=== PATIENT | female | born 1940 | race Caucasian/White ===

== ENCOUNTER 2017-06-12 10:14 | Inpatient (IN) | payer MEDICARE, OTHER ==
[2017-06-12 11:21] LABS: #Basophils 0.1 thou/uL (0.0-0.2); #Eosinphils 0.2 thou/uL (0.0-0.7); #Lymphocytes 1.4 thou/uL (1.20-3.40); #Monocytes 0.7 thou/uL (0.11-0.59); #Neutrophils 4.7 thou/uL (1.40-6.50); %Basophils 1.2 % (0.0-1.0); %Eosinophils 3.1 % (0.0-10.0); %Lymphocytes 19.9 % (21.0-51.0); %Monocytes 9.6 % (0.0-10.0); Hematocrit 23.4 % (36.0-47.0); Mean Platelet Volume 8.5 fL (7.4-10.4); Red Blood Cell (RBC) Count 2.38 mill/uL (4.20-5.40); White Blood Cell (WBC) Count 7.1 thou/uL (4.8-10.8)
[2017-06-12 11:22] LABS: IRF 0.462 Ratio (0.163-0.362)
--- NOTE | 2017-06-12 11:26 | RAD ---
PORTABLE CHEST 1 VIEW: Date: 06/12/17 Time: 1026 hours HISTORY: Dyspnea. FINDINGS: The heart is enlarged. Changes of median sternotomy are present. Lungs are well expanded without con fluent areas of consolidation, pneumothorax, [place] pulmonary edema, or pleural effusions. IMPRESSION: Cardiomegaly. POS: ROS
[2017-06-12 11:28] LABS: PTT 47.4 SEC (22.9-36.1); Prothrombin Time 39.6 SEC (12.0-14.7)
[2017-06-12 11:33] LABS: ALT (SGPT) 15 U/L (8-55); AST (SGOT) 20 U/L (5-34); Alkaline Phosphatase 54 U/L (40-150); Anion Gap 12 mmol/L (10-20); BUN (Urea Nitrogen) 26 mg/dL (9.8-20.1); Bilirubin, Total 0.5 mg/dL (0.2-1.2); Calc. Creatinine Clearance 0 mL/min (70-130); Carbon Dioxide 24 mmol/L (23-31); Chloride 109 mmol/L (98-107); Estimated GFR-MDRD 31; Globulin 3.3 g/dL (2.4-3.5); Iron 20 ug/dL (50-170); Protein, Total 6.8 g/dL (6.0-8.3)
--- NOTE | 2017-06-12 13:25 | HP ---
PRIMARY CARE PHYSICIAN: [facility] call admission. REASON FOR ADMISSION: Symptomatic anemia. HISTORY OF PRESENT ILLNESS: A 77-year-old female who has history of bioprosthetic aortic valve replacement as well as history of chronic anticoagulation therapy with Xarelto, who came to emergency room for generalized weakness, fatigue, dyspnea on exertion, dizziness and palpitations. These symptoms are gradually getting worse for about a month. Patient reports that she gets intermittent spontaneous epistaxis. Last epistaxis was about 10 days ago and whenever she gets epistaxis per family, it is voluminous and requires time to control. She denies by herself any melenotic stool, hematochezia. She denies any weight loss. She denies any epigastric pain. She denies taking NSAID. Patient denies any or GI bleeding. She denies any chest pain. She denies any syncope. She denies any lower extremity edema, orthopnea, or PND. She denies any urinary tract infection symptoms. Patient reports that she had colonoscopy about more than 5 years ago, but she never had any upper endoscopy. Patient denies any family history of colon cancer. The patient is being admitted for symptomatic anemia and workup. REVIEW OF SYSTEMS: The following complete review of systems was negative, unless otherwise mentioned in the HPI or below: Constitutional: Weight loss or gain, ability to conduct usual activities. Skin: Rash, itching. Eyes: Double vision, pain. ENT/Mouth: Nose bleeding, neck stiffness, pain, tenderness. Cardiovascular: Palpitations, dyspnea on exertion, orthopnea. Respiratory: Shortness of breath, wheezing, cough, hemoptysis, fever or night sweats. Gastrointestinal: Poor appetite, abdominal pain, heartburn, nausea, vomiting, constipation, or diarrhea. Genitourinary: Urgency, frequency, dysuria, nocturia. Musculoskeletal: Pain, swelling. Neurologic/Psychiatric: Anxiety, depression. Allergy/Immunologic: Skin rash, bleeding tendency. Please see my HPI for pertinent positive and negative. All other review of systems reviewed and negative except as mentioned in the HPI. PAST MEDICAL HISTORY: Recurrent epistaxis, anemia, diabetes type 2, bradycardia , hypothyroidism, dyslipidemia, and aortic valve disorder. PAST SURGICAL HISTORY: History of aortic valve replacement with bioprosthetic valve, carotid endarterectomy. PAST PSYCHIATRIC HISTORY: Anxiety, depression, and obsessive compulsive disorder. SOCIAL HISTORY: Patient lives at home. No history of smoking, alcohol or other illicit drug abuse. She drinks alcohol only very occasionally. FAMILY HISTORY: No strong family history of premature coronary artery disease, stroke or cancer. ALLERGIES: NSAID, QUINOLONES, and SULFA DRUGS. CURRENT HOME MEDICATIONS: Xarelto 10 mg p.o. daily, Lipitor 20 mg p.o. at bedtime, glipizide 5 mg p.o. daily, valsartan 80 mg p.o. daily, Synthroid 100 mcg p.o. daily, metoprolol tartrate 12.5 mg p.o. daily, aspirin 81 mg p.o. daily , Celexa 10 mg p.o. daily, and cetirizine 10 mg p.o. daily. EMERGENCY ROOM COURSE: Reviewed. PHYSICAL EXAMINATION: VITAL SIGNS: Currently, blood pressure 154/38, pulse 50, respiratory rate 16, temperature 97.9, saturation 99% on room air, and weight 63.5 kilograms. GENERAL: Patient is currently alert, awake, in no obvious acute distress. HEAD: Normocephalic, atraumatic. EYES: Pupils round, reactive to light. Extraocular muscle intact. Pallor plus. No nystagmus. ENT: Pale mucous membranes. No oral lesions. No pharyngeal erythema, no exudate. NECK: Supple, no JVD, no thyromegaly, no carotid bruit, no signs of meningeal irritation. LUNGS: Clear to auscultation without any rhonchi or rales. CARDIAC: S1 and S2 regular, bradycardia, bioprosthetic click heard. ABDOMEN: Soft, bowel sounds present. No distention, no organomegaly, no mass, no peritoneal sign, no guarding, no rigidity, no rebound, and no suprapubic tenderness. BACK: Examination unremarkable, no CVA tenderness. EXTREMITIES: Upper extremity passive movements of all joints are normal. Lower extremity, no edema. Good peripheral pulsation. SKIN: Pale skin. No rash. HEMATOLOGICAL SYSTEM: No lymphadenopathy. PSYCHIATRIC: Normal affect. NEUROLOGIC: Patient is alert and oriented x3. Cranial nerves II-XII intact. Motor and sensation within normal limits. No focal neurological deficit noted. IMAGING AND SIGNIFICANT LABORATORY DATA: 1. EKG based on my review, sinus bradycardia with rate 44. No Q-wave in lead 3 , V1, V2 and V3. 2. Chest x-ray based on my review, cardiomegaly. 3. CBC: WBC 7.1, hemoglobin 7.3, platelets 201, reticulocyte count 2.0, INR 3.8. 4. BMP: Sodium 140, potassium 5.1, chloride 109, carbon dioxide 24, BUN 26, creatinine 1.62, glucose 111, and calcium 9.0. 5. Iron 20, TIBC 374, ferritin 19.76. 6. LFT: AST 20, ALT 15, alkaline phosphatase 54, albumin 3.5. ASSESSMENT AND PLAN/IMPRESSION: 1. Symptomatic anemia. The patient has iron deficiency anemia. Most likely, this patient has intermittent blood loss from epistaxis. The patient is on chronic anticoagulation with Xarelto. Underlying gastrointestinal loss is also possible. At this point, patient and family member requesting further evaluation with ENT evaluation as well as GI evaluation to find out the source of bleeding. At this point, patient has symptomatic anemia. That is why we will transfuse 1 unit of blood. We will also consider iron infusion while in hospital and iron supplementation. We will hold on Xarelto therapy we find the source of bleeding. We will repeat CBC tomorrow. We will also check stool for guaiac. 2. Recurrent epistaxis. Patient will need ENT evaluation, most likely related with her chronic anticoagulation with Xarelto, but we need to identify the etiology of epistaxis like arteriovenous malformation. If it is the case, then she may need specific treatment. The patient's family member requesting ENT consultation while in hospital. 3. Diabetes type 2. We will continue insulin as per sliding scale per protocol. Diabetic diet will be given. We will continue glipizide 5 mg p.o. daily. 4. Sinus bradycardia. We will hold on metoprolol tartrate therapy at this point because of significant bradycardia. 5. Hypertension. We will continue valsartan 80 mg p.o. daily. 6. Dyslipidemia. We will continue Lipitor 20 mg p.o. at bedtime. 7. Anxiety and depression. We will continue Celexa 10 mg p.o. daily. 8. Chronic kidney disease stage 3. We will monitor renal function. We will repeat basic metabolic panel tomorrow. 9. Chronic anticoagulation with Xarelto. We will hold on Xarelto therapy today until we identify the source of bleeding. 10. Gastrointestinal prophylaxis; Protonix 40 mg p.o. daily. 11.Hypothyroidism: continue synthroid 100 mcg po daily CODE STATUS: The patient is FULL CODE. Patient's son is surrogate decision maker. Disposition plan based on clinical course. We are expecting patient's stay in hospital more than 2 midnights. Plan of care discussed with the patient and family member at bedside in the emergency room. CANDIE
[2017-06-12] MEDS ORDERED: Ondansetron HCl/PF 4 MG/2 ML Vial IVP PRN (13:48)
[2017-06-12] MEDS ORDERED: Loratadine 10 MG TAB PO PRN (13:48)
[2017-06-12] MEDS ORDERED: Dextrose 50% Abboject 50 ML SYRINGE SLOW IVP PRN (13:48)
[2017-06-12] MEDS ORDERED: HumaLOG 300 UNITS/3 ML VIAL SC PRN ×2 (13:48)
[2017-06-12] MEDS ORDERED: Sodium Chloride 0.65% Nasal 44 ML BOT EA NARE PRN (13:48)
[2017-06-12] MEDS ORDERED: HYDROcodone/Acetaminophen 5/325 mg Tablet PO PRN (13:48)
[2017-06-12] MEDS ORDERED: Eucerin (Mineral Oil/Petrolatum,White) 30 gm Jar TOP PRN (13:48)
[2017-06-12] MEDS ORDERED: Mag-Al 1200 mg/1200 mg/30 ML UDCUP PO PRN (13:48)
[2017-06-12] MEDS ORDERED: Calcium Carbonate 500 MG ChewTAB PO PRN (13:48)
[2017-06-12] MEDS ORDERED: Milk Of Magnesia 30 ML UDCUP PO PRN (13:48)
[2017-06-12] MEDS ORDERED: Loperamide HCl 2 MG CAP PO PRN (13:48)
[2017-06-12] MEDS ORDERED: Acetaminophen 325 MG TAB PO PRN (13:48)
[2017-06-12] MEDS ORDERED: Zolpidem Tartrate 5 MG TAB PO PRN (13:48)
[2017-06-12] MEDS ORDERED: Ondansetron ODT 4 MG TAB PO PRN (13:48)
[2017-06-12] MEDS ORDERED: Dextrose 5% in Water 1,000 ML IV PRN (13:48)
[2017-06-12] MEDS ORDERED: Senokot 8.6 MG TAB PO PRN (13:48)
[2017-06-12] MEDS ORDERED: Artificial Tear Sol 15 ML BOT EA EYE PRN (13:48)
[2017-06-12] MEDS ORDERED: Diabetic Tussin 200 MG/10 ML UDCUP PO PRN (13:48)
[2017-06-12 13:56] VITALS: BMI 27.3
[2017-06-12 16:03] LABS: Bilirubin Negative (Negative); Blood, Urine Negative (Negative); Glucose, Urine (Dipstick) Negative (Negative); Ketone, Urine Negative (Negative); Nitrite Negative (Negative); Protein, Urine (Dipstick) 30 mg/dL (Neg-Trace)
[2017-06-12 16:07] LABS: Bacteria/HPF Rare-Few HPF (None Seen); Hyaline Casts/LPF 0-3 HYALINE CAST LPF (0-3 Hyaline); RBC/HPF 0-3 HPF (0-3); Squamous Epithelial 0-3 HPF (0-3); WBC/HPF 21-50 HPF (0-3)
[2017-06-12] MEDS: hydrALAZINE 20 MG/ML VIAL SLOW IVP PRN (16:59)
--- NOTE | 2017-06-12 17:45 | CON ---
DATE OF CONSULTATION: 06/12/2017 HISTORY OF PRESENT ILLNESS: The patient is a 77-year-old female who presented with progre ssive shortness of breath and dyspnea on exertion. She has had several nose bleeds over the last se veral months. Her worst being approximately 10 days ago where she bled a large amount according to her and her son. She has had no nausea or vomiting, no abdominal pain, no weight loss. She has not had any melena or hematochezia. She previously had upper and lower endoscopy approximately 15 year s ago. The patient is on Xarelto for a bovine aortic valve. She took her last Xarelto this morning . PAST MEDICAL HISTORY: Significant for diabetes mellitus, hyperlipidemia, hypertension, bradycardia, aortic valve replacement with bovine valve. PAST SURGICAL HISTORY: Includes aortic valve replacement and endarterectomy. MEDICATIONS: Include Xarelto 10 mg p.o. q. day, Lipitor 20 mg p.o. q.p.m., glipizide 5 mg p.o. q. d ay, valsartan 80 mg p.o. q. day, Synthroid 100 mcg p.o. q. day, metoprolol 12.5 mg p.o. q. day, aspi rin 81 mg p.o. q. day, Celexa 10 mg p.o. q. day and cetirizine 10 mg p.o. q. day. FAMILY HISTORY: Negative for GI or liver disease. REVIEW OF SYSTEMS: Constitutional: No fever or chills. No weight loss. Eyes: No blurred vision or double vision. ENT: Negative for sore throat. Negative for ear aces. Positive for nosebleeds. Cardiovascular: Negative for chest pain. Negative for palpitations. Pulmonary: Positive for sh ortness of breath. Positive for dyspnea on exertion. Negative for wheezes. Negative for cough. G astrointestinal: See above. Genitourinary: No hematuria or dysuria. Musculoskeletal: No joint p ain or muscle weakness. Skin: No rashes. Neurologic: No numbness or seizure activity. PHYSICAL EXAMINATION: GENERAL: Shows a pale female in no acute distress. VITAL SIGNS: Temperature 97.8, pulse 50, respiratory rate 14 and blood pressure 192/44. HEENT: Unremarkable. NECK: Supple. CHEST: Clear. CARDIOVASCULAR: Regular rate and rhythm. ABDOMEN: Soft and nontender, without organomegaly or masses. Bowel sounds are present and normoact berkley. RECTAL: Deferred. EXTREMITIES: Normal. NEUROLOGIC: Nonfocal. LABORATORY DATA: Shows a hemoglobin of 7.3 and hematocrit of 23.4. PT is 39.6 with an INR of 3.8. Chemistries show chloride 109, BUN 26, creatinine 1.62, glucose 111. Iron is 28, TIBC is 374. Junito ritin is 19.76. Urinalysis shows a moderate leukocyte esterase and 21-50 wbc's. ASSESSMENT: 1. Iron deficiency anemia - probably secondary to epistaxis. 2. Coagulopathy secondary to Xarelto. 3. Aortic valve replacement, on Xarelto. 4. Epistaxis. 5. Urinary tract infection. 6. Diabetes mellitus. 7. Hypertension. 8. Bradycardia. RECOMMENDATIONS: 1. Hold Xarelto. 2. EGD and colonoscopy on 06/14.
[2017-06-12] MEDS: Atorvastatin Calcium 20 MG TAB PO SCH (20:48)
[2017-06-13 05:19] LABS: #Basophils 0.1 thou/uL (0.0-0.2); #Eosinphils 0.3 thou/uL (0.0-0.7); #Lymphocytes 1.7 thou/uL (1.20-3.40); #Monocytes 0.8 thou/uL (0.11-0.59); #Neutrophils 4.8 thou/uL (1.40-6.50); %Basophils 0.8 % (0.0-1.0); %Eosinophils 4.1 % (0.0-10.0); %Lymphocytes 21.8 % (21.0-51.0); %Monocytes 10.1 % (0.0-10.0); Hematocrit 24.2 % (36.0-47.0); Mean Platelet Volume 8.6 fL (7.4-10.4); Red Blood Cell (RBC) Count 2.52 mill/uL (4.20-5.40); White Blood Cell (WBC) Count 7.6 thou/uL (4.8-10.8)
[2017-06-13 05:20] LABS: Prothrombin Time 23.7 SEC (12.0-14.7)
[2017-06-13] MEDS: Levothyroxine Sodium 100 MCG TAB PO SCH (05:39)
[2017-06-13 05:41] LABS: ALT (SGPT) 14 U/L (8-55); AST (SGOT) 19 U/L (5-34); Alkaline Phosphatase 43 U/L (40-150); Anion Gap 10 mmol/L (10-20); BUN (Urea Nitrogen) 28 mg/dL (9.8-20.1); Bilirubin, Total 0.6 mg/dL (0.2-1.2); Calc. Creatinine Clearance 35 mL/min (70-130); Carbon Dioxide 24 mmol/L (23-31); Chloride 111 mmol/L (98-107); Estimated GFR-MDRD 38; Globulin 2.5 g/dL (2.4-3.5); Protein, Total 5.6 g/dL (6.0-8.3)
[2017-06-13] MEDS: glipiZIDE 5 MG TAB PO SCH (09:27)
[2017-06-13] MEDS: Valsartan 80 MG TAB PO SCH (09:27)
[2017-06-13] MEDS: Citalopram 20 MG TAB PO SCH (09:27)
[2017-06-13] MEDS ORDERED: Iron Sucrose Complex 200 MG in Sodium Chloride 0.9% 250 ML 250 ML IVPB SCH (10:00)
--- NOTE | 2017-06-13 10:05 | PDOC.PN ---
- Subjective Encounter Start Date: 06/13/17 Encounter Start Time: 08:40 -: old records requested/rev Patient seen and examined. pt is still feels very weak, fatigued and dyspnea on exertion. No overnight events - Objective Resuscitation Status: Resuscitation Status FULL:Full Resuscitation MAR Reviewed: Yes Vital Signs & Weight: Vital Signs (12 hours) Temp Pulse Resp BP BP Pulse Ox 06/13/17 08:26 98.4 F 71 20 98 06/13/17 08:00 97.8 F 67 20 163/58 H 95 06/13/17 04:00 98.4 F 71 20 175/63 H 95 06/13/17 00:12 98.6 F 52 L 20 165/65 H 96 Weight Weight 144 lb 6 oz I&O: 06/12/17 06/13/17 06/14/17 06:59 06:59 06:59 Intake Total 980 Balance 980 Result Diagrams: 06/13/17 04:41 06/13/17 04:41 Additional Labs: Accuchecks 06/13/17 06/12/17 06/12/17 05:06 20:33 16:18 POC Glucose 104 121 H 173 H Phys Exam - Physical Examination Constitutional: NAD HEENT: PERRLA, moist MMs, sclera anicteric Neck: no JVD, supple Respiratory: no wheezing, no rales, no rhonchi Cardiovascular: RRR, no significant murmur, no rub Gastrointestinal: soft, non-tender, no distention, positive bowel sounds Musculoskeletal: no edema, pulses present Neurological: non-focal, normal sensation, moves all 4 limbs Psychiatric: normal affect, A&O x 3 Skin: no rash, normal turgor Dx/Plan (1) Symptomatic anemia Code(s): D64.9 - ANEMIA, UNSPECIFIED Status: Acute (2) Bradycardia Code(s): R00.1 - BRADYCARDIA, UNSPECIFIED Status: Acute Comment: due to BB (3) Recurrent epistaxis Code(s): R04.0 - EPISTAXIS Status: Acute (4) Anxiety and depression Code(s): F41.8 - OTHER SPECIFIED ANXIETY DISORDERS Status: Chronic (5) Chronic anticoagulation Code(s): Z79.01 - HALFWAY (CURRENT) USE OF ANTICOAGULANTS Status: Chronic (6) Diabetes type 2, controlled Code(s): E11.9 - TYPE 2 DIABETES MELLITUS WITHOUT COMPLICATIONS Status: Chronic (7) Dyslipidemia Code(s): E78.5 - HYPERLIPIDEMIA, UNSPECIFIED Status: Chronic (8) H/O mitral valve replacement Code(s): Z95.2 - PRESENCE OF PROSTHETIC HEART VALVE Status: Chronic (9) Hypertension Code(s): I10 - ESSENTIAL (PRIMARY) HYPERTENSION Status: Chronic (10) Hypothyroidism Code(s): E03.9 - HYPOTHYROIDISM, UNSPECIFIED Status: Chronic - Plan cont current plan of care, plan discussed w/ family * today will transfuse 1 unit PRBC * will also give one dose of IV iron * tomorrow plan for EGD/colonoscopy * discussed with son * medication reviewed as below * symptomatic treatment * repeat labs tomorrow. Review of Systems - Review of Systems ENT: negative: Ear Pain, Ear Discharge, Nose Pain, Nose Discharge, Nose Congestion, Mouth Pain, Mouth Swelling, Throat Pain, Throat Swelling, Other Respiratory: negative: Cough, Dry, Shortness of Breath, Hemoptysis, SOB with Excertion, Pleuritic Pain, Sputum, Wheezing Cardiovascular: negative: Chest Pain, Palpitations, Orthopnea, Paroxysmal Noc. Dyspnea, Edema, Light Headedness, Other Gastrointestinal: negative: Nausea, Vomiting, Abdominal Pain, Diarrhea, Constipation, Melena, Hematochezia, Other Genitourinary: negative: Dysuria, Frequency, Incontinence, Hematuria, Retention , Other Musculoskeletal: negative: Neck Pain, Shoulder Pain, Arm Pain, Back Pain, Hand Pain, Leg Pain, Foot Pain, Other Skin: negative: Rash, Lesions, Reuben, Bruising, Other - Medications/Allergies Allergies/Adverse Reactions: Allergies Allergy/AdvReac Type Severity Reaction Status Date / Time NSAIDS (Non-Steroidal Allergy Mild Hives Verified 06/12/17 13:54 Anti-Inflamma Quinolones Allergy Mild Hives Verified 06/12/17 13:54 Sulfa (Sulfonamide Allergy Mild Hives Verified 06/12/17 13:54 Antibiotics) Medications: Current Medications Acetaminophen (Tylenol) 650 mg PO Q4H PRN PRN Reason: Headache/Fever or Pain Hydrocodone Bitart/Acetaminophen ([place] 5/325) 1 tab PO Q4H PRN PRN Reason: Moderate Pain (4-6) Al Hydroxide/Mg Hydroxide (Maalox) 30 ml PO Q6H PRN PRN Reason: Heartburn or Indigestion Artificial Tears (Tears Renewed 15ml Bottle) 0 drop EA EYE PRN PRN PRN Reason: Dry Eyes Atorvastatin Calcium (Lipitor) 20 mg PO HS [facility] Last Admin: 06/12/17 20:48 Dose: 20 mg Calcium Carbonate (Tums) 1,000 mg PO Q4H PRN PRN Reason: Heartburn or Indigestion Citalopram Hydrobromide (Celexa) 20 mg PO DAILY [facility] Last Admin: 06/13/17 09:27 Dose: 20 mg Dextrose/Water (Dextrose 50%) 25 gm SLOW IVP PRN PRN PRN Reason: Hypoglycemia Glipizide (Glucotrol) 5 mg PO DAILY-[facility] Last Admin: 06/13/17 09:27 Dose: 5 mg Glucagon (Glucagon) 1 mg IM PRN PRN PRN Reason: Hypoglycemia Guaifenesin (Robitussin Sf) 200 mg PO Q4H PRN PRN Reason: Cough Hydralazine HCl (Apresoline) 10 mg SLOW IVP Q4H PRN PRN Reason: Systolic BP > 180 Last Admin: 06/12/17 16:59 Dose: 10 mg Dextrose/Water (D5w) 1,000 mls @ 0 mls/hr IV .Q0M PRN; As Directed PRN Reason: Hypoglycemia Iron Sucrose 200 mg/ Sodium (Chloride) 260 mls @ 125 mls/hr IVPB 1000 [facility] Stop: 06/13/17 12:05 Insulin Human Lispro (Humalog) 0 units SC .MODERATE SLIDING SC PRN PRN Reason: Moderate Correctional Scale Insulin Human Lispro (Humalog) 0 units SC .BEDTIME SLIDING SC PRN PRN Reason: Bedtime Correctional Scale Levothyroxine Sodium (Synthroid) 100 mcg PO 0600 [facility] Last Admin: 06/13/17 05:39 Dose: 100 mcg Loperamide HCl (Imodium) 2 mg PO PRN PRN PRN Reason: Diarrhea/Loose Stools Loratadine (Claritin) 10 mg PO DAILYPRN PRN PRN Reason: Sinus Symptoms Magnesium Hydroxide (Milk Of Magnesium) 30 ml PO DAILYPRN PRN PRN Reason: Constipation Mineral Oil/White Petrolatum (Eucerin Cream) 0 gm TOP BIDPRN PRN PRN Reason: Dry Skin Ondansetron HCl (Zofran Odt) 4 mg PO Q6H PRN PRN Reason: Nausea/Vomiting Ondansetron HCl (Zofran) 4 mg IVP Q6H PRN PRN Reason: Nausea/Vomiting Pantoprazole Sodium (Protonix) 40 mg PO DAILY [facility] Last Admin: 06/13/17 09:27 Dose: 40 mg Polyethylene Glycol/Electrolytes (Golytely) 4,000 ml PO 1800 [facility] Stop: 06/13/17 23:59 Senna (Senokot) 2 tab PO HSPRN PRN PRN Reason: Constipation Sodium Chloride ([place] 0.65%) 0 ml EA NARE QIDPRN PRN PRN Reason: Nasal Congestion Valsartan (Diovan) 80 mg PO DAILY [facility] Last Admin: 06/13/17 09:27 Dose: 80 mg Zolpidem Tartrate (Ambien) 5 mg PO HSPRN PRN PRN Reason: Insomnia
--- NOTE | 2017-06-13 12:04 | PRG ---
DATE OF SERVICE: 06/13/2017 SUBJECTIVE: The patient is feeling well. No GI complaints. She is short of breath whenever she ge ts up to walk. OBJECTIVE: VITAL SIGNS: Temperature 98.4, pulse 71, respiratory rate 20 and blood pressure 163/58. HEENT: Unremarkable. NECK: Supple. CHEST: Clear. CARDIOVASCULAR: Regular rate and rhythm. ABDOMEN: Benign. LABORATORY DATA: Shows a hemoglobin of 7.8 and hematocrit of 24.2. PT is 23.7 with an INR of 2.0. Chemistries significant for BUN 28, creatinine 1.36 and albumin 3.1. ASSESSMENT: 1. Anemia - most likely secondary to epistaxis. 2. Coagulopathy. 3. Aortic valve replacement. 4. Epistaxis. 5. Bradycardia. 6. Hypertension. RECOMMENDATIONS: 1. Continue to hold Xarelto. 2. EGD and colonoscopy in a.m.
[2017-06-13] MEDS ORDERED: GoLYTELY 4,000 ml Bottle PO SCH (18:00)
[2017-06-13] MEDS: hydrALAZINE 20 MG/ML VIAL SLOW IVP PRN (20:28)
[2017-06-13] MEDS: Atorvastatin Calcium 20 MG TAB PO SCH (21:23)
[2017-06-14 04:39] LABS: #Lymphocytes 1.3 thou/uL (1.20-3.40); #Monocytes 0.8 thou/uL (0.11-0.59); #Neutrophils 9.4 thou/uL (1.40-6.50); %Basophils 0.4 % (0.0-1.0); %Eosinophils 0.3 % (0.0-10.0); %Lymphocytes 11.2 % (21.0-51.0); %Monocytes 7.1 % (0.0-10.0); Hematocrit 28.5 % (36.0-47.0); Red Blood Cell (RBC) Count 3.02 mill/uL (4.20-5.40); White Blood Cell (WBC) Count 11.6 thou/uL (4.8-10.8)
[2017-06-14 04:52] LABS: Anion Gap 13 mmol/L (10-20); BUN (Urea Nitrogen) 18 mg/dL (9.8-20.1); Calc. Creatinine Clearance 39 mL/min (70-130); Calcium 8.6 mg/dL (7.8-10.44); Carbon Dioxide 23 mmol/L (23-31); Chloride 107 mmol/L (98-107); Estimated GFR-MDRD 43
[2017-06-14] MEDS: Levothyroxine Sodium 100 MCG TAB PO SCH (05:27)
[2017-06-14 05:42] VITALS: BP 170/61; TEMP 97.9
[2017-06-14] MEDS: Valsartan 80 MG TAB PO SCH (08:08)
[2017-06-14] MEDS: glipiZIDE 5 MG TAB PO SCH (08:08)
[2017-06-14] MEDS: Citalopram 20 MG TAB PO SCH (08:08)
[2017-06-14] MEDS ORDERED: Lidocaine 1% PF 5 ML VIAL ONE (08:16)
[2017-06-14] MEDS ORDERED: Propofol 200 MG/20 ML VIAL ONE (08:16)
[2017-06-14] MEDS ORDERED: Promethazine HCl 25 MG/ML VIAL IM PRN (08:47)
[2017-06-14] MEDS ORDERED: Ondansetron HCl/PF 4 MG/2 ML Vial IVP PRN (08:47)
[2017-06-14] MEDS ORDERED: Promethazine HCl 25 MG/ML VIAL SLOW IVP PRN (08:47)
--- NOTE | 2017-06-14 11:46 | PDOC.PN ---
- Subjective Encounter Start Date: 06/14/17 Encounter Start Time: 10:15 -: old records requested/rev Patient seen and examined. No new complaints. No overnight events - Objective Resuscitation Status: Resuscitation Status FULL:Full Resuscitation MAR Reviewed: Yes Vital Signs & Weight: Vital Signs (12 hours) Temp Pulse Resp BP Pulse Ox 06/14/17 07:20 97.9 F 91 18 06/14/17 04:00 97.9 F 91 18 170/61 H 99 Weight Weight 144 lb 6 oz I&O: 06/13/17 06/14/17 06/15/17 06:59 06:59 06:59 Intake Total 728 512 6136 Balance 797 998 0549 Result Diagrams: 06/14/17 04:12 06/14/17 04:12 Additional Labs: Accuchecks 06/14/17 06/13/17 06/13/17 05:26 21:40 15:08 POC Glucose 174 H 122 H 129 H 06/13/17 11:20 POC Glucose 136 H Phys Exam - Physical Examination Constitutional: NAD HEENT: PERRLA, moist MMs, sclera anicteric Neck: no JVD, supple Respiratory: no wheezing, no rales, no rhonchi Cardiovascular: RRR, no significant murmur, no rub Gastrointestinal: soft, non-tender, no distention, positive bowel sounds Musculoskeletal: no edema, pulses present Neurological: non-focal, normal sensation, moves all 4 limbs Psychiatric: normal affect, A&O x 3 Skin: no rash, normal turgor Dx/Plan (1) Symptomatic anemia Code(s): D64.9 - ANEMIA, UNSPECIFIED Status: Acute (2) Bradycardia Code(s): R00.1 - BRADYCARDIA, UNSPECIFIED Status: Acute Comment: due to BB (3) Recurrent epistaxis Code(s): R04.0 - EPISTAXIS Status: Acute (4) Anxiety and depression Code(s): F41.8 - OTHER SPECIFIED ANXIETY DISORDERS Status: Chronic (5) Chronic anticoagulation Code(s): Z79.01 - LONGTERM (CURRENT) USE OF ANTICOAGULANTS Status: Chronic (6) Diabetes type 2, controlled Code(s): E11.9 - TYPE 2 DIABETES MELLITUS WITHOUT COMPLICATIONS Status: Chronic (7) Dyslipidemia Code(s): E78.5 - HYPERLIPIDEMIA, UNSPECIFIED Status: Chronic (8) H/O mitral valve replacement Code(s): Z95.2 - PRESENCE OF PROSTHETIC HEART VALVE Status: Chronic (9) Hypertension Code(s): I10 - ESSENTIAL (PRIMARY) HYPERTENSION Status: Chronic (10) Hypothyroidism Code(s): E03.9 - HYPOTHYROIDISM, UNSPECIFIED Status: Chronic - Plan cont current plan of care, plan discussed w/ family * stable for discharge * EGD and colonoscopy no acute process * medication reviewed as below * symptomatic treatment * see discharge summery. Review of Systems - Review of Systems ENT: negative: Ear Pain, Ear Discharge, Nose Pain, Nose Discharge, Nose Congestion, Mouth Pain, Mouth Swelling, Throat Pain, Throat Swelling, Other Respiratory: negative: Cough, Dry, Shortness of Breath, Hemoptysis, SOB with Excertion, Pleuritic Pain, Sputum, Wheezing Cardiovascular: negative: Chest Pain, Palpitations, Orthopnea, Paroxysmal Noc. Dyspnea, Edema, Light Headedness, Other Gastrointestinal: negative: Nausea, Vomiting, Abdominal Pain, Diarrhea, Constipation, Melena, Hematochezia, Other Genitourinary: negative: Dysuria, Frequency, Incontinence, Hematuria, Retention , Other Musculoskeletal: negative: Neck Pain, Shoulder Pain, Arm Pain, Back Pain, Hand Pain, Leg Pain, Foot Pain, Other - Medications/Allergies Allergies/Adverse Reactions: Allergies Allergy/AdvReac Type Severity Reaction Status Date / Time NSAIDS (Non-Steroidal Allergy Mild Hives Verified 06/12/17 13:54 Anti-Inflamma Quinolones Allergy Mild Hives Verified 06/12/17 13:54 Sulfa (Sulfonamide Allergy Mild Hives Verified 06/12/17 13:54 Antibiotics)
--- NOTE | 2017-06-14 11:49 | OP ---
PREOPERATIVE DIAGNOSIS: Anemia. PROCEDURE IN DETAIL: After informed consent was obtained, the patient was placed in the left latera l decubitus position. Anesthesia was administered per the Anesthesia Department. Forward-viewing e ndoscope was inserted into the esophagus under direct visualization with ease and passed to the se[place] nd portion of the duodenum with ease. Second portion of the duodenum and duodenal bulb were normal. The pylorus was normal. The antrum showed several small ulcers. Biopsies were taken from the [facility] er edge in several places. None of these ulcers had visible vessels or active bleeding. Retroflexi on in the stomach was normal except for a small hiatal hernia. The esophagus was normal throughout. ASSESSMENT: 1. Several small antral ulcers -- status post biopsy. 2. Small hiatal hernia. 3. Otherwise normal esophagogastroduodenoscopy. RECOMMENDATIONS: 1. PPI. 2. Proceed with colonoscopy. PROCEDURE: After informed consent was obtained, the patient was placed in the left lateral decubitu s position. Anesthesia was administered per the Anesthesia Department. Forward-viewing endoscope w as inserted in the rectum after perianal inspection and rectal exam were normal. It was passed to t he cecum with ease. The cecum, ileocecal valve, and appendiceal orifice were normal. The terminal ileum was normal. The prep was excellent. The ascending, transverse, descending, sigmoid and rectu m were all normal except for left-sided diverticulosis coli. ASSESSMENT: 1. Left-sided diverticulosis coli. 2. Otherwise normal colonoscopy. RECOMMENDATIONS: Stable for discharge from gastrointestinal standpoint.
--- NOTE | 2017-06-14 14:45 | DIS ---
DATE OF ADMISSION: 06/12/2017 DATE OF DISCHARGE: 06/14/2017 PRIMARY CARE PHYSICIAN: [facility] call admission. DISCHARGE DISPOSITION: Home. PRIMARY DISCHARGE DIAGNOSES: 1. Recurrent epistaxis. 2. Symptomatic iron deficiency anemia, status post 2 units transfusion. SECONDARY DISCHARGE DIAGNOSES: Hypothyroidism, hypertension, history of mitral valve replacement, d yslipidemia, chronic anticoagulation, diabetes type 2, anxiety and depression. PRIMARY PROCEDURE/OPERATION: Esophagogastroduodenoscopy and colonoscopy was done by Dr. Rowe and fo und with colonic diverticulosis, several small antral ulcers which was biopsied and hiatal hernia. RADIOLOGICAL INVESTIGATION: Chest x-ray was normal. SIGNIFICANT LABS: WBC 11.6, hemoglobin 9.1, platelets 162. INR 1.5. Sodium 138, creatinine 1.20, calcium 8.6. Urinalysis suggestive of UTI, but the patient was not having any symptoms and stool fo r guaiac was negative. DISCHARGE MEDICATIONS: Aspirin 81 mg p.o. daily, Lipitor 40 mg p.o. at bedtime, cetirizine 10 mg p. o. daily, Celexa 10 mg p.o. daily, ferrous sulfate 325 mg p.o. b.i.d., Synthroid 100 mcg p.o. daily, Lopressor 12.5 mg p.o. daily, Protonix 40 mg p.o. daily, Xarelto 10 mg p.o. daily, valsartan 80 mg p.o. daily, and glipizide 5 mg p.o. daily. CONTRAINDICATIONS: None. CODE STATUS: FULL CODE. INPATIENT CONSULTANTS: Dr. Rowe was consulted while in hospital. TEST RESULTS PENDING ON DISCHARGE: None. ALLERGIES: NSAID. DISCHARGE PLAN: Post hospital, the patient will follow up with primary care physician and Dr. Rowe and ENT specialist. HOSPITAL COURSE: A 77-year-old female who was admitted for symptomatic anemia. She was having dysp fatou on exertion, fatigue, palpitation and weakness. She was having gradually worsening anemia. On admission, her hemoglobin was 7.8, we transfused 1 unit of blood and next day, her hemoglobin was 7. 8, despite that she was having continuous symptom and that is why we transfused another unit of bloo d transfusion as well as iron infusion was given. This patient was having recurrent epistaxis and t hat is why we tried to consult ENT, but ENT recommended to see as an outpatient basis. We consulted the employee placement specialist for anemia workup and the patient had upper and lower endoscopy which showed diverticulosis and small antral ulcer and that is why we prescribed Protonix on discharge. We also prescribed iron supplementation. Overall, this patient is hemodynamically stable and patient is re morena to go home. GI cleared her for discharge as well. We are continuing all her previous medicatio n including Xarelto. The patient is seen and examined at bedside today. Please see my progress note for further details. Plan of care discussed with the patient's family member at bedside.
--- NOTE | 2017-06-15 11:42 | EKG ---
Test Reason : Blood Pressure : / mmHG Vent. Rate : 078 BPM Atrial Rate : 076 BPM P-R Int : 000 ms QRS Dur : 132 ms QT Int : 462 ms P-R-T Axes : 000 -29 096 degrees QTc Int : 526 ms Atrial fibrillation Non-specific intra-ventricular conduction block Inferior infarct , age undetermined Cannot rule out Anterior infarct , age undetermined Abnormal ECG No previous ECGs available Confirmed by DR. Bryce SUAREZ ([id number]) on 06/15/2017 11:42:15 AM Referred By: LOWELL Confirmed By:DR. Bryce SUAREZ
== END 2017-06-14 10:09 | disposition home or self-care (01) | DRG 812 ==
LOC: ERS 10:14 → T4-A 12:46
PROVIDERS: ADMIT Internal Medicine; ATTEND Internal Medicine
PROC: 30233N1 Transfusion of Nonautologous Red Blood Cells into Peripheral Vein, Percutaneous Approach (ICD-10-PCS; 2017-06-12)
PROC: 0DB78ZX Excision of Stomach, Pylorus, Via Natural or Artificial Opening Endoscopic, Diagnostic (ICD-10-PCS; principal; 2017-06-14)
PROC: 0DJD8ZZ Inspection of Lower Intestinal Tract, Via Natural or Artificial Opening Endoscopic (ICD-10-PCS; 2017-06-14)
DX: D50.9 Iron deficiency anemia, unspecified (principal); R00.1 Bradycardia, unspecified; N18.3 Chronic kidney disease, stage 3 (moderate); K25.9 Gastric ulcer, unspecified as acute or chronic, without hemorrhage or perforation; I12.9 Hypertensive chronic kidney disease with stage 1 through stage 4 chronic kidney disease, or unspecified chronic kidney disease; E11.9 Type 2 diabetes mellitus without complications; E03.9 Hypothyroidism, unspecified; K44.9 Diaphragmatic hernia without obstruction or gangrene; K57.30 Diverticulosis of large intestine without perforation or abscess without bleeding; F32.9 Major depressive disorder, single episode, unspecified; F41.9 Anxiety disorder, unspecified; R04.0 Epistaxis; Z95.3 Presence of xenogenic heart valve; Z79.01 Long term (current) use of anticoagulants; E78.5 Hyperlipidemia, unspecified; Z88.1 Allergy status to other antibiotic agents; Z88.2 Allergy status to sulfonamides; Z88.8 Allergy status to other drugs, medicaments and biological substances; R79.1 Abnormal coagulation profile; T45.515A Adverse effect of anticoagulants, initial encounter
CPT/HCPCS: 36415; 36416; 36430; 71010; 80048; 80053; 81001; 82274; 82728; 83540; 83550; 85025; 85046; 85610; 85730; 86850; 86900; 86901; 88305; 88312; 93005; 93010; G8978-GP-CJ; G8979-GP-CI; J0360; J1756; J2001; J2704; J7050; P9016

== ENCOUNTER 2018-01-19 10:51 | Day surgery (SDC) | payer MEDICARE, OTHER ==
[2018-01-18 15:40] VITALS: BMI 24.8
[2018-01-19] MEDS ORDERED: CEFAZOLIN/Water 2 GM/20 ML SYRINGE ONE (11:29)
[2018-01-19 11:40] LABS: #Eosinphils 0.2 thou/uL (0.0-0.7); #Lymphocytes 1.8 thou/uL (1.20-3.40); #Monocytes 0.7 thou/uL (0.11-0.59); %Basophils 0.4 % (0.0-1.0); %Eosinophils 2.9 % (0.0-10.0); %Lymphocytes 26.8 % (21.0-51.0); %Neutrophils 59.8 % (42.0-75.0); Hemoglobin 10.9 g/dL (12.0-16.0); Mean Corpuscular HGB CONC 31.8 g/dL (32.0-36.0); Mean Corpuscular Hemoglobin 29.7 pg (27.0-31.0); Mean Corpuscular Volume 93.3 fl (81.0-99.0); Mean Platelet Volume 8.4 fL (7.4-10.4); Platelet Count 162 thou/uL (130-400); Red Blood Cell (RBC) Count 3.68 mill/uL (4.20-5.40); White Blood Cell (WBC) Count 6.8 thou/uL (4.8-10.8)
[2018-01-19 12:00] LABS: Anion Gap 10 mmol/L (10-20); BUN (Urea Nitrogen) 21 mg/dL (9.8-20.1); Calc. Creatinine Clearance 36 mL/min (70-130); Calcium 9.8 mg/dL (7.8-10.44); Carbon Dioxide 26 mmol/L (23-31); Chloride 105 mmol/L (98-107); Estimated GFR-MDRD 43; Glucose 230 mg/dL (83-110); Sodium 137 mmol/L (136-145)
[2018-01-19] MEDS ORDERED: Fentanyl 100 MCG/2 ML VIAL ONE ×2 (12:10→12:29)
[2018-01-19] MEDS ORDERED: Midazolam HCl 2 mg/2 ml Vial ONE ×2 (12:10→12:29)
[2018-01-19] MEDS ORDERED: Ondansetron HCl/PF 4 MG/2 ML Vial IVP PRN (13:26)
[2018-01-19] MEDS ORDERED: traMADol HCl 50 MG TAB PO PRN ×2 (13:26)
[2018-01-19] MEDS ORDERED: Promethazine HCl 25 MG/ML VIAL IM PRN (13:26)
[2018-01-19] MEDS ORDERED: Zolpidem Tartrate 5 MG TAB PO PRN (13:26)
[2018-01-19] MEDS ORDERED: Ropivacaine HCl/PF 1,100 MG in Premix Bag 1 BAG NERVE BLCK SCH (13:26)
[2018-01-19] MEDS ORDERED: Fentanyl 100 MCG/2 ML VIAL SLOW IVP PRN (13:28)
[2018-01-19] MEDS ORDERED: HYDROcodone/Acetaminophen 7.5/325 mg Tablet PO PRN ×2 (13:29)
--- NOTE | 2018-01-19 13:56 | OP ---
PREOPERATIVE DIAGNOSIS: A 100% displaced intra-articular distal radius fracture, left wrist. POSTOPERATIVE DIAGNOSIS: A 100% displaced intraarticular distal radius fracture, left wrist. SURGEON: Mohsen Smith M.D. ANESTHESIA: General. BLOOD LOSS: Minimal. SPECIMEN: None. DRAINS: None. COMPLICATIONS: None. SPACE TECHNOLOGIST: Jose Fishman PA-C. OPERATION PERFORMED: Open reduction internal fixation of intraarticular left distal radius fracture. DESCRIPTION OF PROCEDURE: The patient was taken to the operating where general anesthesia was induce d. Left arm was prepped and draped in the usual sterile fashion. After exsanguination, tourniquet w as inflated to 250 mmHg. I made a longitudinal incision over the flexor carpi radialis tendon. Diss ection carried down and the pronator quadratus which was elevated off bone. The fracture was easily identified. The distal radius was completely displaced over the dorsal aspect of the radius. The di stal radial ulnar joint was completely dislocated. I reduced the distal radial ulnar joint and the d istal radial articular fragment and placed a [employer] 3-hole variable angle locking plate and placed s crews in the usual fashion after checking the biplane fluoroscopy. Permanent x-rays showed appropria te reduction and alignment and length of screws. The tourniquet was released. Irrigation was perfor med. Hemostasis was obtained. Subcutaneous tissue closed with 2-0 Vicryl, the skin was closed with kali. Sterile dressings applied. The patient was placed in a well-padded volar splint.
--- NOTE | 2018-01-19 14:50 | RAD ---
THREE INTRAOPERATIVE IMAGES OF THE LEFT WRIST: 01/19/2018 HISTORY: Fracture, status post open reduction and internal fixation. COMPARISON: None available. FINDINGS: Volar screw and plate fixation is present, involving the distal radius. No displaced fracture or dis location. IMPRESSION: Open reduction and internal fixation, as above. POS: [facility]
[2018-01-19] MEDS ORDERED: hydrALAZINE 20 MG/ML VIAL ONE (15:21)
[2018-01-19] MEDS ORDERED: PROPOFOL 200 MG/20 ML VIAL ONE (15:56)
[2018-01-19] MEDS ORDERED: Ondansetron HCl/PF 4 MG/2 ML Vial ONE (15:56)
[2018-01-19] MEDS ORDERED: Ropivacaine 0.2% HCl/PF (40 MG/20 ML VIAL) ONE (16:25)
[2018-01-19] MEDS ORDERED: Ropivacaine 0.5% HCl/PF (150 MG/30 ML VIAL) ONE (16:25)
== END 2018-01-19 17:04 | disposition home or self-care (01) ==
LOC: SDC 10:51
PROVIDERS: ATTEND Orthopaedic Surgery
PROC: 0PSJ04Z Reposition Left Radius with Internal Fixation Device, Open Approach (ICD-10-PCS; principal; 2018-01-19)
DX: S52.572A Other intraarticular fracture of lower end of left radius, initial encounter for closed fracture (principal); W19.XXXA Unspecified fall, initial encounter; Z88.2 Allergy status to sulfonamides; Z88.8 Allergy status to other drugs, medicaments and biological substances; Z88.1 Allergy status to other antibiotic agents
CPT/HCPCS: 25608; 73110; 76001; 80048; 85025; 93005; 96374; C1713 ×3; 36415; 93010; J0360; J2250; J2405; J2704; J2795; J3010

== ENCOUNTER 2018-04-25 09:51 | Inpatient (IN) | payer MEDICARE, OTHER ==
--- NOTE | 2018-04-25 10:58 | RAD ---
FRONTAL RADIOGRPAH PELVIS: DATE: 04/25/18. COMPARISON: None. HISTORY: Fall, trauma, pain. FINDINGS: There is a nondisplaced obliquely oriented fracture involving the superior pubic ramus on the right. There is also a fracture involving the inferior pubic ramus on the right. Neither hip appears dislo cated. IMPRESSION: Acute fractures of the inferior and superior pubic rami on the right. POS: [facility]
--- NOTE | 2018-04-25 11:00 | RAD ---
TWO VIEWS OF THE RIGHT HIP: DATE: 04/25/18. COMPARISON: None. HISTORY: Fall, trauma, pain. FINDINGS: There are acute obliquely oriented fractures involving the superior pubic ramus medially on the right as well as the inferior pubic ramus on the right. No evidence for hip dislocation. IMPRESSION: Fracture deformities of the right superior and inferior pubic rami. Recommend CT pelvis POS: [facility]
[2018-04-25] MEDS ORDERED: Amlodipine 5 MG TAB PO SCH (11:30)
--- NOTE | 2018-04-25 11:44 | CT ---
PELVIC CT SCAN WITHOUT IV COTNRAST: HISTORY: An 78-year-old female with a history of right hip pain following a fall. FINDINGS: There is an acute minimally displaced fracture involving the right inferior ischiopubic ramus. There is also a nondisplaced fracture through the right anterior ischium/acetabulum. Heterogeneous bone d emineralization. No evidence for an overt superior pubic ramus fracture. IMPRESSION: Minimally displaced fracture involving the right inferior ischiopubic ramus and nondisplaced fracture involving the anterior right ischium/acetabulum. Significant bone demineralization. No evidence fo r associated sacral fracture or dislocation. POS: [facility]
[2018-04-25] MEDS ORDERED: HYDROcodone/Acetaminophen 5/325 mg Tablet PO PRN ×2 (12:00)
[2018-04-25] MEDS ORDERED: Ondansetron ODT 4 MG TAB SL PRN (12:00)
[2018-04-25] MEDS ORDERED: Acetaminophen 325 MG TAB PO PRN (12:00)
[2018-04-25] MEDS ORDERED: Ondansetron HCl/PF 4 MG/2 ML Vial IVP PRN ×2 (12:00→14:36)
[2018-04-25] MEDS ORDERED: HYDROcodone/Acetaminophen 5/325 mg Tablet ONE (12:04)
--- NOTE | 2018-04-25 14:10 | HP ---
DATE OF ADMISSION: 04/25/2018 REQUESTING PHYSICIAN: Dr. Gusman. ATTENDING PHYSICIAN: Dr. Beltre. CONSULTATIONS: Orthopedics, Dr. Gonzalez. HISTORY OF PRESENT ILLNESS: The patient is an 78-year-old female who this morning got out of bed to allow her dog go outside when she tripped and fell landing on her buttocks. She was able to get back up and notify her son who brought her by POV to the emergency department where she underwent evaluat ion and examination and was noted to have multiple nonoperative pelvic fractures, at which time we we re asked to admit the patient to the hospital for pain control and likely placement to rehabilitation facility. The patient denies loss of consciousness, hitting her head or any syncopal type symptoms prior to falling or after. ALLERGIES: NSAIDs, QUINOLONES and SULFA. CURRENT MEDICATIONS: Glipizide, valsartan, Synthroid, aspirin, Celexa, Zyrtec, amlodipine. PAST MEDICAL HISTORY: Hypertension, hypothyroid, hyperlipidemia, diabetes, anxiety and depression. PAST SURGICAL HISTORY: Aortic valve replacement, carotid enterotomy. SOCIAL HISTORY: Patient drinks occasionally during the month. Denies tobacco or drug use. She live s independently alone at home with her son and daughter as neighbors. FAMILY MEDICAL HISTORY: Hypertension. REVIEW OF SYSTEMS: Ten-point review of system is negative, unless otherwise stated. PHYSICAL EXAMINATION: VITAL SIGNS: Blood pressure 198/60, heart rate 68, respirations 16, oxygen saturation 94% on room ai r, temperature is 98.3. GENERAL: The patient is resting comfortably in the ER bed. She is awake, alert, and oriented x3. G lasgow coma scale is 15. HEENT: Head is normocephalic, atraumatic. Eyes: Extraocular motion intact. PERRLA bilaterally. E ars are atraumatic without discharge. Nose is atraumatic with discharge. Oropharynx is clear. NECK: Nontender. Trachea is midline. No JVD. CHEST: Clear to auscultation with good inspiratory and expiratory effort. HEART: Regular rate and rhythm. ABDOMEN: Soft, flat, nontender with active bowel sounds. Pelvis is tender to palpation, specificall y on the right side consistent with her fractures. EXTREMITIES: Neurovascularly intact x4. BACK: Nontender and atraumatic. Labs are all pending. RADIOGRAPHS: AP pelvis shows acute fractures of the inferior and superpubic rami on the right. Radi ographs of the right hip show fracture deformities of the right superior and inferior pubic rami. CT of the pelvis shows minimally displaced fracture involving the right inferior ischiopubic ramus and a nondisplaced fracture involving the anterior right ischium/acetabulum. ASSESSMENT AND PLAN: 1. Status post ground level fall. 2. Multiple nonoperative pelvic fractures. 3. Pain secondary to acute trauma. 4. Hypertension. 5. History of coronary artery disease. Plan will be to admit the patient to the surgical floor. Orthopedic consultation with Dr. Gonzalez, matteo griffith control, pulmonary toilet, gastritis, mechanical VTE prophylaxis, likely we will recommend inpati ent rehabilitation to march the case workers. The evaluation, examination, laboratory and radiograph ic findings will be discussed with Dr. Beltre after this dictation. The ER has notified Dr. Gonzalez w odalys will see the patient later today.
[2018-04-25] MEDS ORDERED: Dextrose 50% Abboject 50 ML SYRINGE SLOW IVP PRN (14:36)
[2018-04-25] MEDS ORDERED: Acetaminophen 1,000 MG in Premix Bag 1 BAG IVPB SCH (14:36)
[2018-04-25] MEDS ORDERED: Dextrose 5% in Water 1,000 ML IV PRN (14:36)
[2018-04-25] MEDS ORDERED: Ondansetron ODT 4 MG TAB PO PRN (14:36)
[2018-04-25] MEDS ORDERED: hydrALAZINE 20 MG/ML VIAL SLOW IVP PRN (14:36)
[2018-04-25 14:45] VITALS: BMI 25.7
[2018-04-25] MEDS: traMADol HCl 50 MG TAB PO PRN ×2 (15:40→22:45)
[2018-04-25] MEDS: Acetaminophen 325 MG TAB PO SCH ×2 (16:27→22:33)
--- NOTE | 2018-04-25 18:05 | CON ---
DATE OF CONSULTATION: 04/25/2018 HISTORY OF PRESENT ILLNESS: Ms. Guevara is an 78-year-old white female who was getting out of bed joana ie this morning and tripped and landed on the right side of her buttocks. The patient had immediate pain in the anterior aspect of the pelvic region as well as deep in the buttocks region. She has a difficult time ambulating because of pain. The patient was brought to the emergency room and x-rays were obtained which showed a nondisplaced fracture of the right superior and inferior pubic rami. Th e patient is admitted for pain control and physical therapy to help with mobilization. ALLERGIES: NONSTEROIDAL ANTI-INFLAMMATORIES, QUINOLONES and SULFA. CURRENT MEDICATIONS: Glipizide, valsartan, Synthroid, aspirin, Celexa, Zyrtec, amlodipine. PAST MEDICAL HISTORY: Hypertension, hypothyroidism, hyperlipidemia, diabetes, anxiety, and depressio n. PAST SURGICAL HISTORY: Aortic valve replacement, carotid endarterectomy. PHYSICAL EXAMINATION: GENERAL: Patient is a very pleasant female, alert and oriented x3. VITAL SIGNS: The patient is afebrile, respiratory rate 16, heart rate 70, blood pressure 176/72. MUSCULOSKELETAL: I am able to move her hips do gentle range of motion. She does have pain in the ri ght side of the pelvis with passive range of motion of the hip. The patient has significant pain wit h any attempts of movement of the right hip actively. Both lower extremities are neurovascularly int act. IMPRESSION: 1. Nondisplaced fracture of the superior near inferior pubic rami on the right. 2. Hypertension. 3. Coronary artery disease. 4. Diabetes. 5. Anxiety disorder. 6. History of depression. PLAN: The patient will be admitted for pain control and we will get physical therapy and occupationa l therapy to help start working with the patient to instruct her on how to ambulate with a walker and perform activities of daily living. Probably would be a very good candidate for rehabilitation.
[2018-04-25] MEDS: Famotidine 20 MG TAB PO SCH (20:35)
[2018-04-25] MEDS ORDERED: Gabapentin 300 MG CAP PO SCH (21:00)
[2018-04-25] MEDS: hydrALAZINE 20 MG/ML VIAL SLOW IVP PRN (21:38)
[2018-04-25] MEDS: Insulin Regular 300 UNITS/3 ML VIAL SC PRN (21:39)
[2018-04-26] MEDS: hydrALAZINE 20 MG/ML VIAL SLOW IVP PRN (01:38)
[2018-04-26] MEDS: Acetaminophen 325 MG TAB PO SCH ×2 (02:40→06:52)
[2018-04-26 04:41] LABS: Anion Gap 12 mmol/L (10-20); BUN (Urea Nitrogen) 28 mg/dL (9.8-20.1); Calc. Creatinine Clearance 34 mL/min (70-130); Calcium 8.8 mg/dL (7.8-10.44); Carbon Dioxide 23 mmol/L (23-31); Chloride 105 mmol/L (98-107); Estimated GFR-MDRD 40; Glucose 221 mg/dL (83-110); Magnesium 1.8 mg/dL (1.6-2.6); Phosphorus 3.3 mg/dL (2.3-4.7); Potassium 4.6 mmol/L (3.5-5.1); Sodium 135 mmol/L (136-145)
[2018-04-26 05:09] LABS: #Basophils 0.1 thou/uL (0.0-0.2); #Eosinphils 0.3 thou/uL (0.0-0.7); #Lymphocytes 1.6 thou/uL (1.20-3.40); #Monocytes 0.7 thou/uL (0.11-0.59); #Neutrophils 6.6 thou/uL (1.40-6.50); %Basophils 0.6 % (0.0-1.0); %Eosinophils 3.3 % (0.0-10.0); %Lymphocytes 16.9 % (21.0-51.0); %Monocytes 7.8 % (0.0-10.0); %Neutrophils 71.4 % (42.0-75.0); Mean Corpuscular HGB CONC 34.5 g/dL (32.0-36.0); Mean Corpuscular Hemoglobin 32.9 pg (27.0-31.0); Mean Corpuscular Volume 95.4 fL (78.0-98.0); Mean Platelet Volume 8.7 fL (7.4-10.4); PLT Morphology Comment Appears Decreased; Platelet Count 117 thou/uL (130-400); Red Blood Cell (RBC) Count 3.35 mill/uL (4.20-5.40); White Blood Cell (WBC) Count 9.3 thou/uL (4.8-10.8)
[2018-04-26] MEDS: Insulin Regular 300 UNITS/3 ML VIAL SC PRN ×2 (05:41→11:08)
[2018-04-26] MEDS ORDERED: Levothyroxine Sodium 100 MCG TAB PO SCH (06:00)
[2018-04-26] MEDS: Famotidine 20 MG TAB PO SCH (08:41)
[2018-04-26] MEDS ORDERED: Valsartan 80 MG TAB PO SCH (09:00)
[2018-04-26] MEDS ORDERED: Citalopram 10 MG TAB PO SCH (09:00)
[2018-04-26] MEDS ORDERED: Heparin 5,000 UNITS/ML VIAL SC SCH (09:00)
[2018-04-26] MEDS ORDERED: Amlodipine 5 MG TAB PO SCH ×2 (09:00→15:00)
[2018-04-26] MEDS ORDERED: Alogliptin 6.25 MG TAB PO SCH (09:00)
[2018-04-26] MEDS ORDERED: Acetaminophen 500 MG TAB PO SCH (10:45)
[2018-04-26 10:52] VITALS: TEMP 97.8
--- NOTE | 2018-04-26 13:09 | DIS ---
DATE OF ADMISSION: 04/25/2018 DATE OF DISCHARGE: 04/26/2018 ADMITTING PHYSICIAN: Dr. Beltre. DISCHARGING PHYSICIAN: Dr. Doll. CONSULTANTS: Dr. Eric Gonzalez, Orthopedic Surgery. ADMITTING DIAGNOSES 1. Status post ground level fall. 2. Nonoperative pelvic fractures. 3. Acute traumatic pain. HISTORY AND HOSPITAL COURSE: This is an 78-year-old woman fell down from a ground level position, collins staining the aforementioned injuries, for which she was evaluated by the trauma team. CT scan of the pelvis was remarkable for minimally displaced pelvic fractures. The patient is seen in consultation by Dr. Eric Gonzalez from [facility]. A nonoperative management of the pelvic fract ures was recommended. The patient was placed in observation. Care has included physical and occupat ional therapy. For VT prophylaxis, she was placed on subcutaneous heparin. Post-admission day #1, t he patient is awake and alert. She has remained with a Emmett coma score of 15. She reports adequa te pain control. She has ambulated with physical therapy with modest difficulty. She is tolerating general diet, having normal bowel and urinary function. PHYSICAL EXAMINATION: VITAL SIGNS: This morning includes blood pressure 142/53, pulse is 71, respiratory rate is 16, tempe rature is 98 degrees Fahrenheit, and oxygen saturation 94% on room air. HEART: Reveals regular rate and rhythm, no murmurs or gallops auscultated. LUNGS: Clear to auscultation bilaterally. Breathing regular and unlabored. ABDOMEN: Soft, nontender, nondistended. EXTREMITIES: Reveals 2+ radial and pedal pulses bilaterally. No ankle edema is present. NEUROLOGICAL: Reveals no focal deficits present. LABORATORY FINDINGS: Today includes CBC with 9300 white blood cells. Hemoglobin and hematocrit 11.0 and 32.0 respectively. Platelet count is 117,000. Metabolic profile: Sodium 135, potassium 4.6, chloride is 105, bicarbonate is 23, BUN 28, creatinine is 1.27, glucose is 221. IMPRESSION: 1. Post-injury day #1, status post ground level fall. 2. Traumatic pelvic fractures. 3. The patient has remained hemodynamically stable through this hospitalization. She has maximized hospital benefit. Inpatient rehabilitation was offered to the patient, however, due to high level of function, especially with minimum assistance during ambulation. Physical therapy has recommended, t he patient be discharged home with outpatient home health care and a rolling walker. [employer] is a rranging the home health care. Prescription has been provided for rolling walker as well. DISCHARGE INSTRUCTIONS: The patient has been discharged home today with the following instructions: 1. She follows up with me in this [facility] in 2-3 weeks with pelvic x-ray. 2. She is to resume all her prehospital medications as prescribed by her primary care physician. 3. She is given a prescription for Pepcid 20 mg #30 to be taken 1 p.o. b.i.d. 4. A prescription for tramadol 50 mg #40 to be taken 1 p.o. q.4 hours p.r.n. pain. 5. She also may take Tylenol 1000 mg p.o. q.6 hours p.r.n. pain. 6. The patient is to call with any questions or problems including exacerbation of pelvic pain, into lerance to oral intake, inability to pass urine. 7. Information was given to the patient in presence of her nurse. 8. She is indicated understanding of information given. I answered their questions.
[2018-04-26 17:11] VITALS: BP 190/55
[2018-04-27] MEDS ORDERED: Famotidine 20 MG TAB PO SCH (09:00)
== END 2018-04-26 15:30 | disposition home or self-care (01) | DRG 536 ==
LOC: ERS 09:51 → SURG A 13:15
PROVIDERS: ADMIT Surgery; ATTEND Surgery
DX: S32.591A Other specified fracture of right pubis, initial encounter for closed fracture (principal); G89.11 Acute pain due to trauma; I10 Essential (primary) hypertension; I25.10 Atherosclerotic heart disease of native coronary artery without angina pectoris; W01.0XXA Fall on same level from slipping, tripping and stumbling without subsequent striking against object, initial encounter; Z88.6 Allergy status to analgesic agent; Z88.2 Allergy status to sulfonamides; Z88.1 Allergy status to other antibiotic agents; Z79.82 Long term (current) use of aspirin; Z79.84 Long term (current) use of oral hypoglycemic drugs; Z79.899 Other long term (current) drug therapy; Z95.2 Presence of prosthetic heart valve; Y92.003 Bedroom of unspecified non-institutional (private) residence as the place of occurrence of the external cause
CPT/HCPCS: 36415; 36416; 72170; 72192; 80048; 83735; 84100; 85025; 96374; G8978-GP-CJ; G8979-GP-CI; G8987-GO-CJ; G8988-GO-CJ; G8989-GO-CJ; J0131; J0360; J1644; J1815; J2270

== ENCOUNTER 2020-05-18 10:36 | Emergency (ER) | payer MEDICARE, OTHER ==
--- NOTE | 2020-05-18 12:49 | RAD ---
LEFT HUMERUS 2 VIEWS: Date: 05/18/2020 HISTORY: Pain. COMPARISON: None. FINDINGS: There is a comminuted left humeral head/neck fracture with lateral displacement of the greater tubero sity. The distal humerus appears to be intact, although the lateral radiograph is limited. IMPRESSION: Left humeral head/neck fracture with lateral displacement of the greater tuberosity. Dedicated left s ulder radiograph is recommended. POS: [facility]
--- NOTE | 2020-05-18 13:40 | RAD ---
XR Shoulder Lt 3 View STANDARD HISTORY: Injury, left shoulder pain FINDINGS: There is a comminuted fracture involving the left proximal humerus with lateral displacement of the g reater tuberosity.
[2020-05-18] MEDS ORDERED: HYDROcodone/Acetaminophen 5/325 mg Tablet ONE (13:42)
== END 2020-05-18 14:03 | disposition home or self-care (01) ==
LOC: ERS 10:36
DX: S42.202A Unspecified fracture of upper end of left humerus, initial encounter for closed fracture (principal); I10 Essential (primary) hypertension; D64.9 Anemia, unspecified; E03.9 Hypothyroidism, unspecified; E78.5 Hyperlipidemia, unspecified; E78.00 Pure hypercholesterolemia, unspecified; F41.9 Anxiety disorder, unspecified; F42.9 Obsessive-compulsive disorder, unspecified; Z87.891 Personal history of nicotine dependence; Z79.82 Long term (current) use of aspirin; Z79.899 Other long term (current) drug therapy; W01.0XXA Fall on same level from slipping, tripping and stumbling without subsequent striking against object, initial encounter
CPT/HCPCS: 93005

== ENCOUNTER 2020-08-21 15:23 | Outpatient (CLI) | payer MEDICARE, OTHER ==
--- NOTE | 2020-08-21 15:53 | RAD ---
LUMBAR SPINE TWO VIEWS: 08/21/20 HISTORY: Acute midline low back pain without sciatica. FINDINGS: Significant diffuse bony demineralization. Marked arterial vascular calcification of the aorta. Cerv ical height loss of L1 with superior end plate irregularity which certainly could represent an acute fracture. Follow-up imaging with CT or MRI should be considered for further assessment of this. IMPRESSION: Evidence for compression/burst fracture of L1 incompletely imaged on this study. Consider follow-up C T or MRI for further assessment. Code T POS: [facility]
== END 2020-08-21 15:24 | disposition home or self-care (01) ==
LOC: SCSRAD 15:23
PROVIDERS: ATTEND Family Medicine Sports Medicine
DX: M54.5 Low back pain (principal); S32.011D Stable burst fracture of first lumbar vertebra, subsequent encounter for fracture with routine healing
CPT/HCPCS: 72100

== ENCOUNTER 2020-08-30 10:55 | Outpatient (CLI) | payer MEDICARE, OTHER ==
--- NOTE | 2020-08-30 11:27 | CT ---
Exam: Lumbar spine CT without contrast HISTORY: Back pain, times several weeks. History of lumbar fracture. COMPARISON: None. CORRELATION: Lumbar spine radiograph series 08/21/2020. FINDINGS: There is diffuse bone demineralization. Redemonstration of a L1 compression fracture. When compared t o the previous radiograph, there appears to be progression of loss of vertebral body height. Minimal paraspinal posttraumatic changes. Appropriate attenuation of the visualized paraspinal muscles and solid organs. There is atheroscleros is of a nonaneurysmal aorta. Left hemidiaphragmatic hernia containing fat is identified. Limited evaluation of the contents of the central spinal canal and neural foramina due to technique. T11-T12 and T12-L1: No high-grade central canal stenosis. L1 vertebral body: Mild central canal stenosis due to retropulsion. L1-L2: No significant central canal stenosis. Patent bilateral neural foramina. L2-L3: Disc space height is preserved. Broad-based disc bulge, ligamentum flavum thickening and facet hypertrophy result in mild central canal stenosis. Mild bilateral neural foraminal narrowing. L3-L4: Broad-based disc bulge, ligamentum flavum thickening and facet hypertrophy result in mild cent ral canal stenosis. Mild right foraminal and left neural foraminal narrowing. L4-L5: Broad-based disc bulge, ligamentum flavum thickening and facet hypertrophy result in moderate to severe central canal stenosis. Mild to moderate bilateral neural foraminal narrowing. 1.3 mm of anterolisthesis of L4 upon L5. L5-S1: Broad-based disc bulge contacts the traversing left and right S1 nerve roots. No significant s tenosis of the thecal sac. Mild bilateral neural foraminal narrowing Beyond the L1 vertebral body, no additional lumbar spine fractures. IMPRESSION: 1. Subacute L1 compression fracture with progression of loss of vertebral body height. 2. Significant central canal stenosis and neural foraminal narrowing of the lumbar spine as detailed above. Transcribed Date/Time: 08/30/2020 11:31 AM
== END 2020-08-30 10:56 | disposition home or self-care (01) ==
LOC: BICCT 10:55
PROVIDERS: ATTEND Family Medicine Sports Medicine
DX: S32.010D Wedge compression fracture of first lumbar vertebra, subsequent encounter for fracture with routine healing (principal); M48.061 Spinal stenosis, lumbar region without neurogenic claudication
CPT/HCPCS: 72131

== ENCOUNTER 2021-01-04 17:25 | Emergency (ER) | payer OTHER, MEDICARE ==
[2021-01-04] MEDS ORDERED: traMADol HCl 50 MG TAB ONE (17:49)
== END 2021-01-04 21:11 | disposition home or self-care (01) ==
LOC: ERS 17:25
DX: S42.211A Unspecified displaced fracture of surgical neck of right humerus, initial encounter for closed fracture (principal); I49.9 Cardiac arrhythmia, unspecified; D64.9 Anemia, unspecified; E11.9 Type 2 diabetes mellitus without complications; E03.9 Hypothyroidism, unspecified; E78.5 Hyperlipidemia, unspecified; E78.00 Pure hypercholesterolemia, unspecified; Z87.891 Personal history of nicotine dependence; Z79.82 Long term (current) use of aspirin; Z79.899 Other long term (current) drug therapy; W01.0XXA Fall on same level from slipping, tripping and stumbling without subsequent striking against object, initial encounter